=== PATIENT | male | born 1935 | race Caucasian/White ===

== ENCOUNTER 2017-11-10 13:00 | Inpatient (IN) | payer MEDICARE, BC ==
[2017-11-11 13:45] VITALS: BMI 32.2
[2017-11-17] MEDS ORDERED: CEFAZOLIN/Water 2 GM/20 ML SYRINGE ONE (08:34)
[2017-11-17] MEDS ORDERED: Midazolam HCl 2 mg/2 ml Vial ONE (08:34)
[2017-11-17] MEDS ORDERED: Fentanyl 100 MCG/2 ML VIAL ONE ×3 (08:34→11:29)
[2017-11-17] MEDS ORDERED: Vancomycin HCl 1.5 GM, Admixture Fee 1 EACH in Sodium Chloride 0.9% 250 ML 300 ML IVPB SCH (08:45)
[2017-11-17] MEDS ORDERED: diphenhydrAMINE 25 MG CAP PO PRN ×2 (09:25→10:45)
[2017-11-17] MEDS ORDERED: HYDROcodone/Acetaminophen 10/325 mg Tablet PO PRN ×2 (09:25)
[2017-11-17] MEDS ORDERED: Ondansetron HCl/PF 4 MG/2 ML Vial IVP PRN ×2 (09:25→10:45)
[2017-11-17] MEDS ORDERED: Promethazine HCl 25 MG/ML VIAL IM PRN ×2 (09:25→10:45)
[2017-11-17] MEDS ORDERED: traMADol HCl 50 MG TAB PO PRN ×3 (09:25→10:45)
[2017-11-17] MEDS ORDERED: Acetaminophen 325 MG TAB PO PRN (09:25)
[2017-11-17] MEDS ORDERED: Zolpidem Tartrate 5 MG TAB PO PRN ×2 (09:25→10:45)
[2017-11-17] MEDS ORDERED: Fentanyl 100 MCG/2 ML VIAL SLOW IVP PRN ×2 (09:25)
[2017-11-17] MEDS ORDERED: Tranexamic Acid 1,000 MG in Sodium Chloride 0.9% 100 ML IVPB SCH (09:30)
[2017-11-17] MEDS ORDERED: Naloxone HCl 0.4 mg/ml Vial IVP PRN (10:45)
[2017-11-17] MEDS ORDERED: Bupivacaine 0.25% 10 ML VIAL EPIDURAL PRN (10:45)
[2017-11-17] MEDS ORDERED: Hydrocerin (Eucerin) Cream 120 gm Jar TOP PRN (10:45)
[2017-11-17] MEDS ORDERED: Naloxone HCl 0.4 mg/ml Vial IV PRN (10:45)
[2017-11-17] MEDS ORDERED: fentaNYL Citrate/PF 1,250 MCG, Bupivacaine 25 ML in Sodium Chloride 0.9% 250 ML 200 ML EPIDURAL SCH (10:45)
[2017-11-17] MEDS ORDERED: Promethazine HCl 25 MG SUPP PR PRN (10:45)
[2017-11-17] MEDS ORDERED: diphenhydrAMINE 50 MG/ML VIAL IVP PRN (10:45)
[2017-11-17] MEDS ORDERED: HYDROcodone/Acetaminophen 5/325 mg Tablet PO PRN ×2 (10:45)
[2017-11-17] MEDS ORDERED: diphenhydrAMINE 50 MG/ML VIAL IM PRN (10:45)
--- NOTE | 2017-11-17 13:07 | OP ---
DATE OF PROCEDURE: 11/17/2017 PREOPERATIVE DIAGNOSIS: Degenerative joint disease, left hip. POSTOPERATIVE DIAGNOSIS: Degenerative joint disease, left hip. SURGEON: Luis A Davis M.D. FABRIC SOURCER: Dayron Zavala PA-C. BLOOD LOSS: 300. SPECIMEN: None. DRAINS: None. COMPLICATIONS: None. IMPLANTS USED: Fox size 5 Accolade stem with a standard 36 mm cobalt chromium head, 54 mm tracki ng cup and a 36 mm X3 liner. PROCEDURE IN DETAIL: After informed consent was obtained in the preoperative holding area, the patie nt was taken to the operative suite where general anesthesia was induced. The patient was then posit ioned in the lateral decubitus position. The hip was then prepped and draped in usual sterile fashio n. The patient received preoperative antibiotics. Prior to incision, time-out was called and all me mbers of the surgical team agreed upon site, surgeon, and patient. After this, a longitudinal incisi on was made directly over the trochanter, noted by palpation extending 2 fingerbreadths above and bel ow the trochanter. The deeper subcutaneous layer was undermined with Bovie electrocautery. The ilio tibial band was encountered and incised sharply and the plane below this was developed bluntly. A arnley retractor was placed to hold this opened. The lateral aspect of the trochanter and the abduct or muscles were encountered and then reflected anteriorly off the trochanter using Bovie electrocaute ry. Once this was completed, the anterior capsule was then encountered and identified and copious ca psulotomy was carried out, exposing the femoral neck and head. Dislocation maneuver was then performe d and an in situ provisional neck cut was then made using the oscillating saw. Attention was then tu rned to acetabular preparation and sequential reaming was carried out up to the appropriate diameter and a trial was then malleted into place with good firm resistance and no pullout. The permanent jessi tabular shell was then malleted squarely into place, as was the appropriate liner. Once completed, t he wound was copiously irrigated and attention was then turned to femoral preparation. Flexion and ex ternal rotation was performed of the exposed thigh and femoral elevators were then placed at the prox imal aspect of the wound. Canal finder was used to establish the length of the canal and sequential reaming was carried out, followed by broaching. Once the appropriate stability was established with the trial broaches with both flexion, extension and rotational stability, we did trial with neutral a nd 2 mm offset incremental necks. Once the appropriate size was decided upon, with good stability no randolph with flexion, extension, internal and external rotation and shuck being negative, we removed the femoral trial broach and malletted into place the permanent prosthesis with good firm fit, which was also stable to rotation. Again, the hip felt very stable to flexion, extension, internal and externa l rotation. Leg lengths appeared near anatomic clinically and we were quite happy with prosthesis pl acement. Copious irrigation was then carried out through the entirety of the wound. Primary closure of the abductors was accomplished with interrupted #2 Vicryl [id number] stitches and the IT ban d was then closed with interrupted #2 Vicryl, oversewn with a #2 running barbed Quill stitch. Subcut aneous fascia was closed with running barbed Quill stitch and a subcuticular Monocryl barbed Quill st itch was used for skin closure and augmented with skin cement. A sterile dressing was applied. The p rocedure was terminated without any complication. All counts were correct. The patient was awakened in the operative suite and taken to the recovery room in stable condition.
[2017-11-17] MEDS ORDERED: Ketorolac Tromethamine 30 MG/ML VIAL IVP SCH (14:00)
--- NOTE | 2017-11-17 14:52 | RAD ---
LEFT HIP 2 VIEWS: Date: 11/17/17 HISTORY: Postop total hip. COMPARISON: Hip radiograph dated 09/21/17. FINDINGS: Satisfactory appearance of the left hip arthroplasty. Expected postoperative gas and edema. IMPRESSION: Satisfactory appearance of left hip arthroplasty. POS: FAM
[2017-11-17] MEDS: Ketorolac Tromethamine 30 MG/ML VIAL IVP SCH ×2 (14:55→17:31)
[2017-11-17] MEDS: Sodium Chloride 0.9% 1,000 ML IV SCH ×2 (15:40→18:37)
[2017-11-17] MEDS: CEFAZOLIN/Water 2 GM/20 ML SYRINGE SLOW IVP SCH ×2 (15:41→21:55)
[2017-11-17] MEDS ORDERED: PHENYLEPHRINE-NS 100 MCG/ML 10 ML SYRINGE ONE (16:47)
[2017-11-17] MEDS ORDERED: Ketorolac Tromethamine 30 MG/ML VIAL ONE (16:47)
[2017-11-17] MEDS ORDERED: Glycopyrrolate 0.2 MG/ML 5 ML SYRINGE ONE (16:47)
[2017-11-17] MEDS ORDERED: Ondansetron HCl/PF 4 MG/2 ML Vial ONE (16:47)
[2017-11-17] MEDS ORDERED: PROPOFOL 200 MG/20 ML VIAL ONE (16:47)
[2017-11-17] MEDS: Ferrous Gluconate 324 MG TAB PO SCH (21:52)
[2017-11-17] MEDS: Aspirin 325 MG TAB PO SCH (21:52)
[2017-11-17] MEDS: Ezetimibe 10 MG TAB PO SCH (21:54)
[2017-11-17] MEDS: Tamsulosin HCl 0.4 MG CAP PO SCH (21:54)
[2017-11-17] MEDS: Ramipril 5 MG CAP PO SCH (21:54)
[2017-11-18] MEDS: Ketorolac Tromethamine 30 MG/ML VIAL IVP SCH ×4 (00:25→18:44)
[2017-11-18] MEDS: Sodium Chloride 0.9% 1,000 ML IV SCH ×2 (04:16→16:09)
[2017-11-18 05:02] LABS: Hemoglobin 11.5 g/dL (14.0-18.0); Mean Corpuscular HGB CONC 33.9 g/dL (32.0-36.0); Mean Corpuscular Volume 91.4 fl (80.0-94.0); Mean Platelet Volume 6.6 fL (7.4-10.4); Platelet Count 201 thou/uL (130-400); RBC Distribution Width 13.7 % (11.5-14.5); Red Blood Cell (RBC) Count 3.71 mill/uL (4.70-6.10); White Blood Cell (WBC) Count 6.9 thou/uL (4.8-10.8)
[2017-11-18 05:16] LABS: Anion Gap 10 mmol/L (10-20); BUN (Urea Nitrogen) 25 mg/dL (8.4-25.7); Calc. Creatinine Clearance 70 mL/min (70-130); Calcium 8.3 mg/dL (7.8-10.44); Carbon Dioxide 26 mmol/L (23-31); Chloride 106 mmol/L (98-107); Estimated GFR-MDRD 65; Glucose 94 mg/dL (83-110); Potassium 4.6 mmol/L (3.5-5.1); Sodium 137 mmol/L (136-145)
[2017-11-18] MEDS: Senokot S 8.6-50 MG TAB PO SCH ×2 (08:50→21:02)
[2017-11-18] MEDS: Aspirin 325 MG TAB PO SCH ×2 (08:50→19:53)
[2017-11-18] MEDS: Multivitamin W/ Minerals 1 TAB PO SCH (08:50)
[2017-11-18] MEDS: Ferrous Gluconate 324 MG TAB PO SCH ×2 (08:51→19:52)
[2017-11-18] MEDS: Furosemide 40 MG TAB PO SCH (08:51)
--- NOTE | 2017-11-18 12:45 | HP ---
DATE OF SERVICE: 11/18/2017 PRIMARY CARE PHYSICIAN: Dr. Chon Small. CONSULTING PHYSICIAN: Dr. Luis A Davis. CHIEF COMPLAINT: Left hip pain, admission for total hip replacement. HISTORY OF PRESENT ILLNESS: The patient admitted and underwent left total hip replacement without in cident. The patient's cell counts are holding up and the patient states he is in no significant post operative pain, did walk with physical therapy yesterday. Nursing staff report borderline urine outp ut about 250 per shift over the last three shifts and urine is dark colored. The patient normally ta kes Lasix for lower extremity edema and no known heart failure history, the patient denies shortness of breath or chest pains. He yet to produce flatus at this point in time and has tolerated some diet . 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 He had a PACU, vital signs has been taken on the right arm and appears to have inflamed h is prior irritable nerve. He states the Toradol has been controlling his pain, has not taken any efrem cotics at this point in time. REVIEW OF SYSTEMS: No fevers, no chills, no cough, no congestion, no chest pain, no palpitations. P ositive constipation. No abdomen pain, no current lower extremity edema, no confusion, no headache, positive right radiculopathy from the elbow to wrist, right hand. PAST MEDICAL, SOCIAL, SURGICAL HISTORY: Includes the patient with no known drug allergies, history o f malignant melanoma removed by Dr. Teague, carpal tunnel syndrome, status post release, benign pros tatic hyperplasia, osteoarthritis of left hip, coronary disease with Dr. Marie, hypertension. 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 Prior knee replacement in 2002, prior open heart surger y by Dr. Jordon Small in 2004. Patient currently nonsmoker, was living with spouse; however, her ca regiver, she has been transitioned to [facility] while he undergoes the surgery and rehabilitation seeking care for her again. MEDICATIONS: At home include my Myrbetriq, furosemide, ramipril 5 mg, simvastatin, Aleve, omeprazole 40 mg, tamsulosin 0.4 mg, aspirin 81 mg, Sharon p.r.n. 5 mg/325, Zetia 10 mg. FAMILY HISTORY: Mother with diabetes, father with cholesterol, hypertension, heart disease. PHYSICAL EXAMINATION: VITAL SIGNS: This morning, temperature 98.0, pulse of 61, respiratory rate of 18, oxygen saturation 96% on room air, blood pressure 128/64. GENERAL: The patient is alert and oriented, no acute distress. HEENT: Head is normocephalic, atraumatic. Extraocular movements are intact. Sclerae are clear. Or al mucosa is moist. NECK: Supple. HEART: Regular rate and rhythm. LUNGS: Clear to auscultation bilaterally. ABDOMEN: Soft, nontender. EXTREMITIES: Lower extremities without pitting edema. NEUROLOGIC: The patient is alert and oriented x3, no focal deficits. Speech is normal. LABORATORY WORK: White blood cell count of 6.9, hemoglobin 11.5, platelet count of 201. Sodium 137, potassium of 4.6, chloride of 106, CO2 of 26, BUN of 25, creatinine of 1.0, glucose of 94, calcium o f 8.3. X-RAY FINDINGS: Postoperative hip x-ray, stable appearing replacement, expected soft tissue swellin g and postoperative gas. ASSESSMENT AND PLAN: The patient is status post total hip replacement secondary to osteoarthritis, h ypertension, neuropathy of right hand, constipation, coronary artery disease, postoperative managemen t of hip per Orthopedic Surgery. Continuing patient's ramipril for hypertension, appears stable at t his point in time. The patient's pain is subsiding in his right hand following no further vital sign s on that arm and states his pain is controlled with Toradol. During constipation, the patient recei albertina stool softener this a.m. and we will continue to monitor. The patient has been tolerating diet s o far. Denies any nausea or vomiting. Coronary artery disease, we will continue the patient's aspir in, Zetia, Lasix, and Crestor. It appears that the patient has not fully tolerated beta ko in t he past secondary to heart rate. Regarding decreased urine output, we will continue IV fluids at 100 mL per hour. We will encourage the patient to drink. We will follow up urine output following Lasi x this a.m. Creatinine and BUN currently stable, we will trend while urine output remains marginal an d monitor for any signs of volume overload. We will continue to follow while inpatient.
[2017-11-18] MEDS: Ramipril 5 MG CAP PO SCH (19:52)
[2017-11-18] MEDS: Tamsulosin HCl 0.4 MG CAP PO SCH (19:53)
[2017-11-18] MEDS: Ezetimibe 10 MG TAB PO SCH (19:54)
[2017-11-18] MEDS ORDERED: Rosuvastatin 10 MG TAB PO SCH ×2 (21:00)
[2017-11-19] MEDS: Ketorolac Tromethamine 30 MG/ML VIAL IVP SCH ×2 (01:10→06:53)
[2017-11-19] MEDS: Sodium Chloride 0.9% 1,000 ML IV SCH ×2 (03:35→13:02)
[2017-11-19 05:06] LABS: Anion Gap 6 mmol/L (10-20); BUN (Urea Nitrogen) 27 mg/dL (8.4-25.7); Calc. Creatinine Clearance 69 mL/min (70-130); Calcium 8.9 mg/dL (7.8-10.44); Carbon Dioxide 28 mmol/L (23-31); Chloride 105 mmol/L (98-107); Estimated GFR-MDRD 64; Glucose 104 mg/dL (83-110); Potassium 4.1 mmol/L (3.5-5.1); Sodium 135 mmol/L (136-145)
[2017-11-19 05:10] LABS: Hemoglobin 10.8 g/dL (14.0-18.0); Mean Corpuscular HGB CONC 32.9 g/dL (32.0-36.0); Mean Corpuscular Hemoglobin 29.9 pg (27.0-31.0); Mean Corpuscular Volume 91.1 fl (80.0-94.0); Mean Platelet Volume 6.9 fL (7.4-10.4); Platelet Count 190 thou/uL (130-400); Red Blood Cell (RBC) Count 3.61 mill/uL (4.70-6.10); White Blood Cell (WBC) Count 6.5 thou/uL (4.8-10.8)
[2017-11-19] MEDS: Aspirin 325 MG TAB PO SCH (09:01)
[2017-11-19] MEDS: Furosemide 40 MG TAB PO SCH (09:01)
[2017-11-19] MEDS: Ferrous Gluconate 324 MG TAB PO SCH (09:02)
[2017-11-19] MEDS: Senokot S 8.6-50 MG TAB PO SCH (09:02)
[2017-11-19] MEDS: Multivitamin W/ Minerals 1 TAB PO SCH (09:02)
--- NOTE | 2017-11-19 13:36 | PRG ---
DATE OF SERVICE: 11/19/2017 HISTORY OF PRESENT ILLNESS: The patient states he walked over 300 feet. He is potentially slated fo r discharge later this afternoon from primary ortho team. He reports some very minimal discomfort to his left hip. He states he has taken narcotics this morning. He does have sennosides at home and h e will take them regarding some constipation issues. He has passed a good flatus and has no abdomen pain, no vomiting reported. Patient has had improved urine color and urine output. IV fluids have b een discontinued. The patient states his right hand neuropathy has returned to baseline. PHYSICAL EXAMINATION: VITAL SIGNS: Temperature of 98.8, pulse of 67, respiratory rate of 18, oxygen saturation 96% on room air, and blood pressure 125/55. GENERAL: The patient is alert and oriented, no acute distress. HEENT: Normocephalic, atraumatic. Extraocular movements are intact. Sclerae are clear. Oral mucos a is moist. NECK: Supple. HEART: Regular rate and rhythm. No murmurs auscultated. LUNGS: Clear to auscultation bilaterally. No rubs or wheezes. ABDOMEN: Soft, nontender, positive bowel sounds throughout. EXTREMITIES: No lower extremity edema or cyanosis. NEUROLOGIC: The patient is alert and oriented x3, no focal deficits. Speech is normal. Left hip wi th dressing intact. LABORATORY DATA: BNP of 181, creatinine of 1.1. Sodium of 135, BUN of 27, glucose of 104. ASSESSMENT AND PLAN: Status post left total hip replacement, hypertension, coronary artery disease, constipation, neuropathy of right hand. The patient has largely returned to baseline home medication s. He is progressing well regarding orthopedic standpoint. Agree with discharge. Instructed isacc newton to take Senokot whenever he gets home and to follow up in clinic or add an additional MiraLax or st ool softener to aid with bowel movements. Encouraged the patient to walk to promote bowel movements as well with orthopedic guidelines, the patient's decreased urine output appears to be resolved. His renal function is stable on labs.
[2017-11-19] MEDS ORDERED: Furosemide 40 MG TAB PO SCH (16:15)
[2017-11-19 16:24] VITALS: BP 165/64; TEMP 98.2
--- NOTE | 2017-11-20 11:46 | DIS ---
DATE OF ADMISSION: 11/17/2017 DATE OF DISCHARGE: 11/19/2017 DISCHARGE DISPOSITION: To home. ADMISSION DIAGNOSES: End-stage bicompartmental osteoarthritis, left hip. DISCHARGE DIAGNOSES: End-stage bicompartmental osteoarthritis, left hip. OPERATIVE PROCEDURE: Left total hip arthroplasty. CONSULTANTS: [facility] for acute postop pain management and Dr. Chon Small for medi ezio management. BRIEF CLINICAL HISTORY: The patient was admitted to [facility] and underwent the above elective procedure on the date of admission without intra, ayah, or postoperative complicat ion. The hospital course was unremarkable. At the time of discharge, the patient is afebrile, ambul atory without assistance utilizing a rolling walker in a full weightbearing fashion, tolerating a reg ular diet, and voiding without difficulty. The patient's incision is clean and closed without any er ythema. DISCHARGE MEDICATIONS: Please see medication reconciliation form. We will be happy to see the patient on an as needed basis between now and her next scheduled appointm ent. CONDITION ON DISCHARGE: Stable. PROGNOSIS: Good.
== END 2017-11-19 17:59 | disposition home health service (06) | DRG 470 ==
LOC: SJJU 11-17 07:50
PROVIDERS: ADMIT Orthopaedic Surgery; ATTEND Orthopaedic Surgery
PROC: 0SRB01A Replacement of Left Hip Joint with Metal Synthetic Substitute, Uncemented, Open Approach (ICD-10-PCS; principal; 2017-11-17)
PROC: 3E0T3BZ Introduction of Anesthetic Agent into Peripheral Nerves and Plexi, Percutaneous Approach (ICD-10-PCS; 2017-11-17)
DX: M16.12 Unilateral primary osteoarthritis, left hip (principal); G62.9 Polyneuropathy, unspecified; Z85.820 Personal history of malignant melanoma of skin; N40.0 Benign prostatic hyperplasia without lower urinary tract symptoms; I25.10 Atherosclerotic heart disease of native coronary artery without angina pectoris; I10 Essential (primary) hypertension; Z79.82 Long term (current) use of aspirin; K59.00 Constipation, unspecified; Z87.891 Personal history of nicotine dependence; E78.2 Mixed hyperlipidemia; E66.9 Obesity, unspecified; Z68.32 Body mass index [BMI] 32.0-32.9, adult
CPT/HCPCS: 36415; 80048; 83880; 85027; C1776; G8978-GP-CJ; G8979-GP-CI; G8987-GO-CJ; G8988-GO-CI; J1885; J2250; J2405; J2704; J3010; J3370; J3490; J7050

== ENCOUNTER 2017-11-11 13:10 | Outpatient (CLI) | payer MEDICARE, BC ==
--- NOTE | 2017-11-11 14:39 | RAD ---
TWO VIEWS CHEST: Comparison: 02-02-17 History: Pre-operative radiograph. FINDINGS: Two views of the chest shows a normal sized cardiomediastinal silhouette with atherosclerotic calcifi cations in the aorta. The patient is status post sternotomy. A pacemaker is unchanged in position. Th ere is no evidence of consolidation, mass, or pleural effusion. Degenerative changes are seen in the spine. IMPRESSION: 1. No evidence of acute cardiopulmonary disease. 2. Atherosclerotic disease. POS: FAM
[2017-11-11 15:02] LABS: #Eosinphils 0.2 thou/uL (0.0-0.7); #Monocytes 0.5 thou/uL (0.11-0.59); #Neutrophils 3.8 thou/uL (1.40-6.50); %Basophils 0.9 % (0.0-1.0); %Eosinophils 2.8 % (0.0-10.0); %Lymphocytes 17.5 % (21.0-51.0); %Monocytes 8.7 % (0.0-10.0); %Neutrophils 70.1 % (42.0-75.0); Hemoglobin 14.4 g/dL (14.0-18.0); Mean Corpuscular Hemoglobin 30.6 pg (27.0-31.0); Mean Corpuscular Volume 92.7 fl (80.0-94.0); Mean Platelet Volume 6.9 fL (7.4-10.4); Platelet Count 238 thou/uL (130-400); White Blood Cell (WBC) Count 5.4 thou/uL (4.8-10.8)
[2017-11-11 15:05] LABS: Bilirubin Negative (Negative); Blood, Urine Negative (Negative); Clarity CLEAR (Clear); Glucose, Urine (Dipstick) Negative (Negative); Leukocyte Negative (Negative); Nitrite Negative (Negative); Protein, Urine (Dipstick) Negative (Neg-Trace); Specific Gravity, Urine 1.009 (1.002-1.036); Urobilinogen 0.2 mg/dL (0.2-1.0); pH, Urine 5.5 (5.0-9.0)
[2017-11-11 15:07] LABS: Bacteria/HPF None Seen HPF (None Seen); Hyaline Casts/LPF 0-3 HYALINE CAST LPF (0-3 Hyaline); Pathc Cast-AUWi Flag 0.29 (0-2.49); RBC/HPF 0-3 HPF (0-3); Squamous Epithelial None Seen HPF (0-3); WBC/HPF None Seen HPF (0-3)
[2017-11-11 15:08] LABS: INR-International Normal Ratio 1.1; PTT 26.4 SEC (22.9-36.1); Prothrombin Time 13.9 SEC (12.0-14.7)
[2017-11-11 15:21] LABS: Anion Gap 13 mmol/L (10-20); BUN (Urea Nitrogen) 20 mg/dL (8.4-25.7); Calc. Creatinine Clearance 0 mL/min (70-130); Calcium 9.8 mg/dL (7.8-10.44); Carbon Dioxide 27 mmol/L (23-31); Chloride 104 mmol/L (98-107); Estimated GFR-MDRD 61; Glucose 93 mg/dL (83-110); Potassium 4.4 mmol/L (3.5-5.1); Sodium 140 mmol/L (136-145)
== END 2017-11-11 13:11 | disposition home or self-care (01) ==
LOC: LABBT 13:10
PROVIDERS: ATTEND Orthopaedic Surgery
DX: Z01.818 Encounter for other preprocedural examination (principal); M16.12 Unilateral primary osteoarthritis, left hip; I70.90 Unspecified atherosclerosis
CPT/HCPCS: 71046; 80048; 81001; 85025; 85610; 85730; 86850; 86900; 86901; 87081

== ENCOUNTER 2017-11-22 11:01 | Emergency (ER) | payer MEDICARE, BC ==
[2017-11-22 11:41] LABS: #Eosinphils 0.3 thou/uL (0.0-0.7); #Lymphocytes 0.9 thou/uL (1.20-3.40); #Monocytes 0.8 thou/uL (0.11-0.59); #Neutrophils 4.7 thou/uL (1.40-6.50); %Basophils 0.3 % (0.0-1.0); %Eosinophils 4.3 % (0.0-10.0); %Lymphocytes 13.3 % (21.0-51.0); %Neutrophils 70.2 % (42.0-75.0); Mean Corpuscular HGB CONC 34.1 g/dL (32.0-36.0); Mean Corpuscular Hemoglobin 30.8 pg (27.0-31.0); Mean Corpuscular Volume 90.5 fl (80.0-94.0); Mean Platelet Volume 6.6 fL (7.4-10.4); Platelet Count 257 thou/uL (130-400); RBC Distribution Width 13.8 % (11.5-14.5); Red Blood Cell (RBC) Count 3.88 mill/uL (4.70-6.10); White Blood Cell (WBC) Count 6.7 thou/uL (4.8-10.8)
[2017-11-22 11:49] LABS: Bilirubin Negative (Negative); Blood, Urine Negative (Negative); Clarity CLEAR (Clear); Glucose, Urine (Dipstick) Negative (Negative); Leukocyte Negative (Negative); Nitrite Negative (Negative); Protein, Urine (Dipstick) Negative (Neg-Trace); Specific Gravity, Urine 1.015 (1.002-1.036)
[2017-11-22 12:01] LABS: ALT (SGPT) 15 U/L (8-55); AST (SGOT) 28 U/L (5-34); Albumin 3.8 g/dL (3.4-4.8); Alkaline Phosphatase 54 U/L (40-150); Anion Gap 15 mmol/L (10-20); BUN (Urea Nitrogen) 24 mg/dL (8.4-25.7); Bilirubin, Total 1.7 mg/dL (0.2-1.2); Calc. Creatinine Clearance 0 mL/min (70-130); Carbon Dioxide 25 mmol/L (23-31); Chloride 102 mmol/L (98-107); Estimated GFR-MDRD 74; Globulin 2.7 g/dL (2.4-3.5); Glucose 103 mg/dL (83-110); Protein, Total 6.5 g/dL (5.8-8.1); Sodium 138 mmol/L (136-145)
== END 2017-11-22 13:31 | disposition home or self-care (01) ==
LOC: ERS 11:01
DX: R60.0 Localized edema (principal); I10 Essential (primary) hypertension; Z87.891 Personal history of nicotine dependence; Z79.899 Other long term (current) drug therapy; Z79.82 Long term (current) use of aspirin
CPT/HCPCS: 80053; 81003; 85025; 99283

== ENCOUNTER 2020-04-17 09:46 | Outpatient (CLI) | payer MEDICARE, BC ==
--- NOTE | 2020-04-17 11:52 | RAD ---
RIGHT WRIST 3 VIEWS: Date: 04/17/2020 HISTORY: Wrist pain. FINDINGS: Severe degenerative changes of the first carpometacarpal joint. There is loss of joint space with art icular sclerosis and hypertrophic spurring with subcortical lucencies and cystic changes in the proxi mal phalanx of the thumb. Mild DJD at the scaphotrapezium and mild to moderate DJD at the radiocarpal joint. Carpals appear int act. Mild DJD at the first MCP joint. IMPRESSION: Severe degenerative changes at the first carpometacarpal as described. POS: AH
== END 2020-04-17 09:47 | disposition home or self-care (01) ==
LOC: SCSRAD 09:46
PROVIDERS: ATTEND Family Medicine
DX: M25.531 Pain in right wrist (principal); G62.9 Polyneuropathy, unspecified; M18.11 Unilateral primary osteoarthritis of first carpometacarpal joint, right hand

== ENCOUNTER 2021-09-27 03:34 | Observation (INO) | payer MEDICARE, BC ==
[2021-09-27 04:54] VITALS: BMI 33.3
[2021-09-27] MEDS ORDERED: Ondansetron PF 4 MG/2 ML Vial IVP PRN (05:14)
[2021-09-27] MEDS ORDERED: Acetaminophen 325 MG TAB PO PRN (05:14)
[2021-09-27 06:10] LABS: #Eosinphils 0.2 thou/uL (0.0-0.7); #Lymphocytes 0.8 thou/uL (1.20-3.40); #Monocytes 0.8 thou/uL (0.11-0.59); #Neutrophils 6.3 thou/uL (1.40-6.50); %Basophils 0.5 % (0.0-1.0); %Eosinophils 2.1 % (0.0-10.0); %Lymphocytes 9.6 % (21.0-51.0); %Monocytes 9.8 % (0.0-10.0); %Neutrophils 78.1 % (42.0-75.0); Hemoglobin 12.2 g/dL (14.0-18.0); Mean Corpuscular HGB CONC 32.5 g/dL (32.0-36.0); Mean Corpuscular Hemoglobin 30.5 pg (27.0-31.0); Mean Corpuscular Volume 93.6 fL (78.0-98.0); Mean Platelet Volume 7.1 fL (7.4-10.4); Platelet Count 189 thou/uL (130-400); RBC Distribution Width 14.7 % (11.5-14.5); Red Blood Cell (RBC) Count 3.99 mill/uL (4.70-6.10)
[2021-09-27] MEDS ORDERED: hydrALAZINE 20 MG/ML VIAL SLOW IVP PRN (06:26)
[2021-09-27 06:31] LABS: Anion Gap 10 mmol/L (10-20); BUN (Urea Nitrogen) 23 mg/dL (8.4-25.7); Calc. Creatinine Clearance 72 mL/min (70-130); Calcium 9.3 mg/dL (7.8-10.44); Carbon Dioxide 25 mmol/L (23-31); Cardiac Risk 2.7 (Less than 4.5); Chloride 108 mmol/L (98-107); Cholesterol 97 mg/dl (< 200 Desired); Glucose 117 mg/dL (83-110); HDL Cholesterol 36 mg/dL (>60 Neg Risk); LDL Cholesterol, Calculated 47 mg/dL; Potassium 4.1 mmol/L (3.5-5.1); Sodium 139 mmol/L (136-145); Triglycerides 71 mg/dL (Less than 150)
[2021-09-27 06:36] LABS: Troponin I 0.012 ng/mL (< 0.028)
[2021-09-27 08:51] LABS: Troponin I 0.014 ng/mL (< 0.028)
[2021-09-27] MEDS ORDERED: Ezetimibe 10 MG TAB PO SCH (09:00)
[2021-09-27] MEDS ORDERED: Ramipril 5 MG CAP PO SCH (09:00)
[2021-09-27] MEDS ORDERED: Furosemide 20 MG TAB PO SCH (09:00)
[2021-09-27 13:02] VITALS: BP 159/70; TEMP 97.5
[2021-09-27] MEDS ORDERED: Tamsulosin HCl 0.4 MG CAP PO SCH ×2 (21:00)
[2021-09-27] MEDS ORDERED: Rosuvastatin 20 MG TAB PO SCH (21:00)
[2021-09-27] MEDS ORDERED: Apixaban 5 MG TAB PO SCH (21:00)
== END 2021-09-27 15:00 | disposition home or self-care (01) ==
LOC: 2NO 04:38
PROVIDERS: ADMIT Internal Medicine; ATTEND Internal Medicine
DX: R07.89 Other chest pain (principal); I16.0 Hypertensive urgency; I10 Essential (primary) hypertension; I25.10 Atherosclerotic heart disease of native coronary artery without angina pectoris; N40.0 Benign prostatic hyperplasia without lower urinary tract symptoms; I25.2 Old myocardial infarction; I48.0 Paroxysmal atrial fibrillation; E11.9 Type 2 diabetes mellitus without complications; Z66 Do not resuscitate; Z87.891 Personal history of nicotine dependence; Z79.01 Long term (current) use of anticoagulants; Z79.899 Other long term (current) drug therapy; Z95.0 Presence of cardiac pacemaker; Z95.1 Presence of aortocoronary bypass graft
CPT/HCPCS: 36415; 71045; 80053; 80061; 81003; 81015; 84484; 85025; 93005; 93010; 96374; G0378; J0360; U0002

== ENCOUNTER 2022-10-01 07:36 | Observation (INO) | payer MEDICARE, BC ==
[2022-10-01] MEDS ORDERED: Ondansetron PF 4 MG/2 ML Vial IVP PRN (08:25)
[2022-10-01] MEDS ORDERED: Ondansetron ODT 4 MG TAB PO PRN (08:26)
[2022-10-01] MEDS ORDERED: Acetaminophen 325 MG TAB PO PRN (08:26)
[2022-10-01 08:40] VITALS: BMI 30.2
[2022-10-01] MEDS ORDERED: Furosemide 20 MG TAB PO SCH (10:00)
[2022-10-01] MEDS ORDERED: Apixaban 5 MG TAB PO SCH ×2 (10:00→21:00)
[2022-10-01] MEDS ORDERED: Ramipril 5 MG CAP PO SCH (10:00)
[2022-10-01] MEDS ORDERED: Rosuvastatin 10 MG TAB PO SCH (10:30)
[2022-10-01] MEDS: Nitroglycerin 2% Ointment 1 INCH/1 GM Packet TOP SCH ×2 (10:38→17:04)
[2022-10-01 10:39] LABS: Troponin I 0.013 ng/mL (< 0.028)
[2022-10-01 14:12] LABS: Troponin I Less than 0.010 ng/mL (< 0.028)
[2022-10-01] MEDS: cloNIDine 0.1 MG TAB PO PRN (17:33)
[2022-10-01] MEDS: Lactated Ringer's 1,000 ML IV SCH (18:48)
[2022-10-01] MEDS: Ramipril 5 MG CAP PO SCH (19:57)
[2022-10-01] MEDS ORDERED: Ezetimibe 10 MG TAB PO SCH (21:00)
[2022-10-01] MEDS ORDERED: Tamsulosin HCl 0.4 MG CAP PO SCH (21:00)
[2022-10-02] MEDS: cloNIDine 0.1 MG TAB PO PRN (04:14)
[2022-10-02] MEDS: Ramipril 5 MG CAP PO SCH (08:19)
[2022-10-02] MEDS: Lactated Ringer's 1,000 ML IV SCH (08:23)
[2022-10-02] MEDS ORDERED: Rosuvastatin 10 MG TAB PO SCH (09:00)
[2022-10-02] MEDS ORDERED: Amlodipine 5 MG TAB PO SCH (09:00)
[2022-10-02] MEDS ORDERED: Furosemide 20 MG TAB PO SCH (09:00)
[2022-10-02] MEDS ORDERED: Bupivacaine HCl 0.5%/Epinephrine 1:200,000/PF 30 ml Vial ONE (12:37)
[2022-10-02] MEDS ORDERED: Famotidine/PF 20 mg/2ml Vial ONE (13:08)
[2022-10-02] MEDS ORDERED: SUGAMMADEX SODIUM 200 MG/2 ML VIAL ONE (13:08)
[2022-10-02] MEDS ORDERED: fentaNYL PF 100 MCG/2 ML SYRINGE ONE (13:08)
[2022-10-02] MEDS ORDERED: PHENYLEPHRINE-NS 100 MCG/ML 10 ML SYRINGE ONE (13:40)
[2022-10-02] MEDS ORDERED: Rocuronium Bromide 10 MG/ML (10ML VIAL) ONE (13:40)
[2022-10-02] MEDS ORDERED: Lidocaine 1% PF 5 ML VIAL ONE (13:40)
[2022-10-02] MEDS ORDERED: ePHEDrine 50 MG/ML VIAL ONE (13:40)
[2022-10-02] MEDS ORDERED: PROPOFOL 200 MG/20 ML VIAL ONE (13:40)
[2022-10-02] MEDS ORDERED: Ondansetron PF 4 MG/2 ML Vial ONE (13:40)
[2022-10-02] MEDS ORDERED: Ondansetron HCl/PF 4 MG/2 ML Vial IVP PRN (14:09)
[2022-10-02] MEDS ORDERED: traMADol HCl 50 MG TAB PO PRN (14:40)
[2022-10-02] MEDS ORDERED: Ibuprofen 600 MG TAB PO PRN (14:40)
[2022-10-02] MEDS ORDERED: Acetaminophen 500 MG TAB PO PRN (14:40)
[2022-10-02] MEDS ORDERED: Acetaminophen 500 MG TAB PO SCH (14:45)
[2022-10-02 15:40] VITALS: BP 117/66; TEMP 98.7
== END 2022-10-02 17:20 | disposition home or self-care (01) ==
LOC: 2SW 07:36 → INTOOBSV 09:51 → OBSVTOIN 09:51 → 2SW 10-02 14:55 → T4-B 10-02 14:55
PROVIDERS: ADMIT Internal Medicine; ATTEND Internal Medicine
PROC: 0FT44ZZ Resection of Gallbladder, Percutaneous Endoscopic Approach (ICD-10-PCS; principal; 2022-10-02)
DX: C23 Malignant neoplasm of gallbladder (principal); K80.12 Calculus of gallbladder with acute and chronic cholecystitis without obstruction; I48.0 Paroxysmal atrial fibrillation; I25.10 Atherosclerotic heart disease of native coronary artery without angina pectoris; I10 Essential (primary) hypertension; N40.1 Benign prostatic hyperplasia with lower urinary tract symptoms; R35.1 Nocturia; I25.2 Old myocardial infarction; E66.9 Obesity, unspecified; I45.10 Unspecified right bundle-branch block; Z68.30 Body mass index [BMI] 30.0-30.9, adult; Z87.891 Personal history of nicotine dependence; Z79.01 Long term (current) use of anticoagulants; Z79.899 Other long term (current) drug therapy; Z95.1 Presence of aortocoronary bypass graft; Z95.810 Presence of automatic (implantable) cardiac defibrillator; Z20.822 Contact with and (suspected) exposure to COVID-19
CPT/HCPCS: 47562; 71045; 74177; 76705; 80053; 83690; 83880; 84484 ×2; 85025; 93005; 96374 ×2; 99285; C1889; G0378 ×2; J0360; U0003; U0005; 36415; 88304; 88342; J1956; J2405; J2704; J3490; J7120; S0028

== ENCOUNTER 2022-10-14 09:33 | Outpatient (CLI) | payer MEDICARE, BC | END 2022-10-14 09:34 | disposition home or self-care (01) | LOC: SCSCT 09:33 | PROVIDERS: ATTEND Family Medicine | DX: R91.1 Solitary pulmonary nodule (principal) | CPT/HCPCS: 71250 ==